=== PATIENT | male | born 1960 | race Caucasian/White ===

== ENCOUNTER 2016-06-23 09:04 | Emergency (ER) | payer OTHER ==
[2016-06-23 09:13] VITALS: BP 138/75
--- NOTE | 2016-06-23 09:23 | UC ---
HPI Wound/Suture Re-check - HPI Summary HPI Summary: The patient comes in today for: 1. Suture removal: Onset: about a week ago. Palliative/provocative: NOthing. Quality: No pain Region: Right ear. Severity: No pain. Time: Constant. Associated symptoms: Event: He had sutures put in a right ear laceration at [facility] about a week ago. HE comes in here to have them removed. * - History Of Current Complaint Chief Complaint: UCLaceration Stated Complaint: SUTURE REMOVAL Time Seen by Provider: 06/23/16 09:16 Hx Obtained From: Patient - Allergies/Home Medications Allergies/Adverse Reactions: Allergies Allergy/AdvReac Type Severity Reaction Status Date / Time No Known Allergies Allergy Verified 06/23/16 09:08 Home Medications: Home Medications NK [No Home Medications Reported] 06/23/16 [History Confirmed 06/23/16] PMH/Surg Hx/FS Hx/Imm Hx Previously Healthy: Yes Endocrine History Of: Denies: Diabetes, Thyroid Disease, Hyperthyroidism, Hypothyroidism, Dyslipidemia Cardiovascular History Of: Denies: Cardiac Disorders, Hypertension, Pacemaker/ICD, Myocardial Infarction , Congestive Heart Failure, Atrial Fibrillation, Deep Vein Thrombosis, Bleeding Disorders Respiratory History Of: Denies: COPD, Asthma, Bronchitis, Pneumonia, Pulmonary Embolism GI/ History Of: Denies: Gastroesophageal Reflux, Ulcer, Gastrointestinal Bleed, Gall Bladder Disease, Kidney Stones, Diverticulitis, Renal Disease, Urosepsis Neurological History Of: Denies: TIA, CVA, Dementia, Seizures, Migraine Psychological History Of: Denies: Anxiety, Depression, Bipolar Disorder, Schizophrenia, Post Traumatic Stress Disorder Cancer History Of: Denies: Lung Cancer, Colorectal Cancer, Breast Cancer, Prostate Cancer, Cervical Cancer Other History Of: Negative For: HIV, Hepatitis B, Hepatitis C, Anticoagulant Therapy - Surgical History Surgical History: Yes Surgery Procedure, Year, and Place: 2 back surgeries, facial surgery - Family History Known Family History: Negative: None - denies family h/o heart disease, htn or dm, Cardiac Disease , Hypertension - Social History Occupation: Employed Part-time Alcohol Use: Weekly Alcohol Amount: Weekends Substance Use Type: None Smoking Status (MU): Current Every Day Smoker Amount Used/How Often: 1 ppd Have You Smoked in the Last Year: Yes Household Exposure Type: Cigarettes - Immunization History Most Recent Influenza Vaccination: None Most Recent Tetanus Shot: UTD Review of Systems Constitutional: Negative Skin: Negative Eyes: Negative ENT: Negative Respiratory: Negative All Other Systems Reviewed And Are Negative: Yes Physical Exam Triage Information Reviewed: Yes Appearance: Well-Appearing, No Pain Distress, Well-Nourished Vital Signs: Initial Vital Signs Temp 98 F 06/23/16 09:09 Pulse 65 06/23/16 09:09 Resp 18 06/23/16 09:09 BP 138/75 06/23/16 09:09 Pulse Ox 100 06/23/16 09:09 Vital Signs Reviewed: Yes Eyes: Positive: Conjunctiva Clear. Negative: Discharge ENT: Positive: Hearing grossly normal. Negative: Pharyngeal erythema, Nasal congestion, Nasal drainage, TM bulging, TM dull, TM red, Tonsillar swelling, Tonsillar exudate Dental: Negative: Gross Decay/Caries @, Dental Fracture @ Neck: Positive: Supple, Nontender, No Lymphadenopathy. Negative: Nuchal Rigidity Respiratory: Positive: Chest non-tender, Lungs clear, No respiratory distress, No accessory muscle use. Negative: Crackles, Wheezing Cardiovascular: Positive: RRR, No Murmur Abdomen Description: Positive: Nontender, No Organomegaly, Soft. Negative: Distended, Guarding Musculoskeletal: Positive: Strength Intact, ROM Intact, No Edema. Negative: Strength Limited @ Neurological: Negative: Alert, Muscle Tone Normal Psychological: Positive: Age Appropriate Behavior, Consolable Skin: Positive: Other - Right ear has a well-healed laceration tih 5 sutures ( all removed) below the tragus of the lower pinna.. Negative: rashes, breakdown Course/Dx - Differential Dx - Laceration/Wound Provider Diagnoses: Wound check/suture removal. Discharge - Discharge Plan Condition: Stable Disposition: HOME Patient Education Materials: Stitches Removal (ED) Referrals: Karina Kaye MD [Primary Care Provider] - If Needed (Please see your primary care provider as needed. If you have any problems, be seen again at that time.)
== END 2016-06-23 09:30 | disposition home or self-care (01) ==
LOC: UCCORT 09:04
DX: S01.311D Laceration without foreign body of right ear, subsequent encounter (principal); X58.XXXD Exposure to other specified factors, subsequent encounter; Y92.9 Unspecified place or not applicable; Z48.02 Encounter for removal of sutures; F17.210 Nicotine dependence, cigarettes, uncomplicated
CPT/HCPCS: 99211; G0463

== ENCOUNTER 2017-07-07 11:05 | Emergency (ER) | payer SELFPAY ==
[2017-07-07 11:58] VITALS: BP 137/84
[2017-07-07] MEDS ORDERED: Fluorescein Sod TOPICAL 0.6* 0.6 MG TEST OPHTHALMIC ONE (12:06)
--- NOTE | 2017-07-07 12:19 | UC ---
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 IRRITATED UNDER L LOWER LID. NO D/C OR VISION LOSS. NO CONTACT USE. - History of Current Complaint Chief Complaint: UCEye Stated Complaint: EYE COMPLAINT Time Seen by Provider: 07/07/17 12:05 Hx Obtained From: Patient Onset/Duration: Sudden Onset Timing: Constant Pain Intensity: 1 Character: Foreign Body Sensation Aggravating Factor(s): Blinking Alleviating Factor(s): Nothing Associated Signs And Symptoms: Negative: Photophobia, Drainage (Clear), Drainage (Purulent), Vision Impairment Bilateral, Fever - Risk Factors Penetrating Injury Risk Factor: Negative Acute Glaucoma Risk Factors: Negative - Allergies/Home Medications Allergies/Adverse Reactions: Allergies Allergy/AdvReac Type Severity Reaction Status Date / Time No Known Allergies Allergy Verified 07/07/17 11:57 PMH/Surg Hx/FS Hx/Imm Hx Previously Healthy: Yes Other History Of: Negative For: HIV, Hepatitis B, Hepatitis C, Anticoagulant Therapy - Surgical History Surgical History: Yes Surgery Procedure, Year, and Place: 2 back surgeries, facial surgery - Family History Known Family History: Negative: None - denies family h/o heart disease, htn or dm, Cardiac Disease , Hypertension - Social History Occupation: Employed Full-time Alcohol Use: Weekly Alcohol Amount: 6 pack Weekends Substance Use Type: None Smoking Status (MU): Heavy Every Day Tobacco Smoker Amount Used/How Often: 1 ppd Have You Smoked in the Last Year: Yes Household Exposure Type: Cigarettes - Immunization History Most Recent Influenza Vaccination: None Most Recent Tetanus Shot: Unknown Vaccination Up to Date: Yes Review of Systems Constitutional: Negative Skin: Negative Eyes: Negative ENT: Negative Respiratory: Negative Cardiovascular: Negative Gastrointestinal: Negative Genitourinary: Negative Motor: Negative Neurovascular: Negative Musculoskeletal: Negative Neurological: Negative Psychological: Negative Is Patient Immunocompromised?: No All Other Systems Reviewed And Are Negative: Yes Physical Exam Triage Information Reviewed: Yes Appearance: Well-Appearing Vital Signs: Initial Vital Signs Temp 98.4 F 07/07/17 11:48 Pulse 72 07/07/17 11:48 Resp 20 07/07/17 11:48 BP 137/84 07/07/17 11:48 Pulse Ox 100 07/07/17 11:48 Eyes: Positive: Other: - Visual acuity: wears glasses for distance and does not have then. Able to read fine print at arms lenght OD, OU and OS. No delfino orbital edema or rash. PERRL, EOMI. Erythema medial lash line L lower lid. L lids everted and no FB's. Pointing white spot to the inner lower lid. AC clear. Stained, no abrasions, dendrites or ulcerations. ENT: Positive: Normal ENT inspection Neck: Positive: Supple, Nontender, No Lymphadenopathy Respiratory: Positive: Lungs clear, Normal breath sounds Cardiovascular: Positive: RRR, No Murmur Abdomen Description: Positive: Nontender, No Organomegaly, Soft Bowel Sounds: Positive: Present Musculoskeletal: Positive: ROM Intact Neurological: Positive: Alert Psychological: Positive: Age Appropriate Behavior Skin Exam: Normal Eye Complaint Course/Dx - Course Course Of Treatment: Chalazion, will tx erthromycin ointment, warm compress with opthamology referal. - Differential Dx/Diagnosis Provider Diagnoses: Chalazion L lower lid Discharge - Sign-Out/Discharge Documenting (check all that apply): Discharge - Discharge Plan Condition: Stable Disposition: HOME Prescriptions: Erythromycin OPTH OINT* [Erythromycin 0.5% OPTH OINT*] 1 applic LEFT EYE TID 7 Days #1 ophth.oint Patient Education Materials: Stephanie (ED) Referrals: Miko Pelaez MD [Medical Doctor] - 7 Days Additional Instructions: WARM COMPRESS THE EYE 3 X'S DAILY - Billing Disposition and Condition Condition: STABLE Disposition: HOME
== END 2017-07-07 12:29 | disposition home or self-care (01) ==
LOC: UCCORT 11:05
DX: H00.15 Chalazion left lower eyelid (principal); F17.210 Nicotine dependence, cigarettes, uncomplicated
CPT/HCPCS: 99212; G0463